=== PATIENT | female | born 1980 | race Hispanic/Latino ===

== ENCOUNTER 2022-03-23 12:03 | Outpatient (CLI) | payer BC | END 2022-03-23 12:04 | disposition home or self-care (01) | LOC: CSHLAB 12:03 | PROVIDERS: ATTEND Internal Medicine Gastroenterology | DX: Z20.822 Contact with and (suspected) exposure to COVID-19 (principal); R10.9 Unspecified abdominal pain; I85.00 Esophageal varices without bleeding | CPT/HCPCS: U0003; U0005 ==

== ENCOUNTER 2022-03-28 05:58 | Day surgery (SDC) | payer BC ==
[2022-03-26 12:10] VITALS: BMI 30.5
[2022-03-28] MEDS ORDERED: Fentanyl 100 MCG/2 ML VIAL ONE (07:05)
[2022-03-28] MEDS ORDERED: PROPOFOL 20 ML ONE (07:05)
[2022-03-28] MEDS ORDERED: Lidocaine 1% PF 5 ML VIAL ONE (07:05)
[2022-03-28] MEDS ORDERED: Lidocaine 1% MPF 2 ML VIAL ONE (07:08)
== END 2022-03-28 09:00 | disposition home or self-care (01) ==
LOC: CSHSDC 05:58
PROVIDERS: ATTEND Internal Medicine Gastroenterology
PROC: 0DB78ZX Excision of Stomach, Pylorus, Via Natural or Artificial Opening Endoscopic, Diagnostic (ICD-10-PCS; principal; 2022-03-28)
DX: K29.50 Unspecified chronic gastritis without bleeding (principal); B96.81 Helicobacter pylori [H. pylori] as the cause of diseases classified elsewhere; I86.4 Gastric varices; K25.9 Gastric ulcer, unspecified as acute or chronic, without hemorrhage or perforation; K29.80 Duodenitis without bleeding; K85.90 Acute pancreatitis without necrosis or infection, unspecified; E78.5 Hyperlipidemia, unspecified; E11.9 Type 2 diabetes mellitus without complications; Z79.4 Long term (current) use of insulin; Z79.84 Long term (current) use of oral hypoglycemic drugs; Z79.899 Other long term (current) drug therapy
CPT/HCPCS: 36416; 88305; J2704; J3010

== ENCOUNTER 2023-05-19 19:52 | Emergency (ER) | payer BC ==
[2023-05-19] MEDS ORDERED: predniSONE 20 MG TAB ONE (20:28)
== END 2023-05-19 20:31 | disposition home or self-care (01) ==
LOC: CSHERS 19:52
DX: G51.0 Bell's palsy (principal); H66.91 Otitis media, unspecified, right ear; E11.9 Type 2 diabetes mellitus without complications; Z79.4 Long term (current) use of insulin; I10 Essential (primary) hypertension
CPT/HCPCS: 99283; J7512

== ENCOUNTER 2023-06-15 07:27 | Inpatient (IN) | payer BC ==
[2023-06-15] MEDS ORDERED: Ondansetron PF 4 MG/2 ML Vial ONE ×2 (08:02→10:16)
[2023-06-15] MEDS ORDERED: Morphine 4 MG/ML VIAL ONE ×2 (08:02→10:16)
[2023-06-15 08:04] LABS: Bilirubin Neg (Negative); Blood, Urine 10 (Negative); Clarity Clear (Clear); Glucose, Urine (Dipstick) >=1000 mg/dL (Negative); Ketone, Urine 150 mg/dL (Negative); Leukocyte Negative (Negative); Nitrite Negative (Negative); Protein, Urine (Dipstick) 15 mg/dl (Neg-Trace); Specific Gravity, Urine 1.015 (1.005-1.030); Urobilinogen Normal mg/dL (Less than 2)
[2023-06-15 08:06] LABS: Pregnancy Test - Urine (BHCG) Negative (Negative); Pregu Control Background? CLEAR/WHITE (CLR/WHITE); Pregu Control Bar Appear? YES (CONTROL BAR); Specific Gravity 1.015 (1.002-1.036)
[2023-06-15 08:18] LABS: Bacteria/HPF Rare-Few HPF (None Seen); CAUTI Indications for Culture Pelvic or flank pain; RBC/HPF 0-3 HPF (0-3); Squamous Epithelial 0-3 HPF (0-3); WBC/HPF 0-3 HPF (0-3); Yeast-Budding Rare HPF (None Seen)
[2023-06-15 08:19] LABS: Urine Culture Reflex No No
[2023-06-15 09:01] LABS: ALT (SGPT) 18 U/L (8-55); AST (SGOT) 21 U/L (5-34); Alkaline Phosphatase 49 U/L (40-110); BUN (Urea Nitrogen) 4 mg/dL (7.0-18.7); Bilirubin, Total 0.5 mg/dL (0.2-1.2); Calc. Creatinine Clearance 0 mL/min (70-130); Calcium 9.3 mg/dL (7.8-10.44); Carbon Dioxide Less than 8 mmol/L (22-29); Chloride 95 mmol/L (98-107); Estimated GFR 85; Globulin 5.1 g/dL (2.4-3.5); Glucose 209 mg/dL (70-105); Lipase 78 U/L (8-78); Potassium 3.8 mmol/L (3.5-5.1); Protein, Total 9.1 g/dL (6.0-8.3); Sodium 133 mmol/L (136-145)
[2023-06-15 09:02] LABS: #Basophils 0.1 10x3/uL (0.0-0.2); #Eosinphils 0.1 10x3/uL (0.0-0.5); #Monocytes 0.5 10x3/uL (0.0-1.1); %Basophils 0.6 % (0.0-2.0); %Eosinophils 0.9 % (0.0-6.0); %Lymphocytes 26.6 % (18.0-47.0); %Monocytes 6.4 % (0.0-10.0); %Neutrophils 65.1 % (40.0-75.0); Hematocrit 43.1 % (34.9-44.5); Hemoglobin 21.3 g/dL (12.0-15.5); Mean Corpuscular HGB CONC 49.4 g/dL (32.0-36.0); Mean Corpuscular Hemoglobin 42.9 pg (27.0-33.0); Mean Corpuscular Volume 86.9 fl (81.6-98.3); Mean Platelet Volume 11.3 fl (7.4-10.4); Platelet Count 279 10x3/uL (150-450); RBC Distribution Width 15.8 % (11.5-14.5); Red Blood Cell (RBC) Count 4.96 10x6/uL (3.90-5.03); White Blood Cell (WBC) Count 7.7 10x3/uL (3.5-10.5)
[2023-06-15 09:49] LABS: Actual Bicarbonate (HCO3v) 15.1 mEq/L (22-28); Base Excess -10.6 mEq/L (-2 - +2); Chloride (VBG) 101 mmol/L (98-106); Hematocrit-VBG 43 % (36.0-47.0); Hemoglobin (Hb) 14.6 g/dL (11.7-15.5); Potassium (VBG) 4.47 mmol/L (3.70-5.30); Puncture Site Other Site; RapidComm Collect By LAB; Sodium 137.7 mmol/L (133-146); pH (venous) 7.276 (7.32-7.43)
[2023-06-15] MEDS ORDERED: HYDROcodone/Acetaminophen 7.5/325 mg Tablet PO PRN (11:03)
[2023-06-15] MEDS ORDERED: Acetaminophen 325 MG TAB PO PRN (11:03)
[2023-06-15] MEDS ORDERED: Sodium Chloride 0.9% 1,000 ML IV SCH (11:15)
[2023-06-15] MEDS ORDERED: Iopamidol 300 61% 100 ML VIAL FS ONE (12:18)
[2023-06-15] MEDS ORDERED: Ketorolac Tromethamine 30 MG/ML VIAL ONE (12:25)
[2023-06-15 13:15] LABS: Lactic Acid 1.4 mmol/L (0.5-2.2)
[2023-06-15 13:20] LABS: BUN (Urea Nitrogen) 4 mg/dL (7.0-18.7); Calc. Creatinine Clearance 0 mL/min (70-130); Calcium 8.7 mg/dL (7.8-10.44); Chloride 100 mmol/L (98-107); Cholesterol 506 mg/dl (< 200 Desired); Estimated GFR 95; Glucose 131 mg/dL (70-105); HDL Cholesterol 11 mg/dL (>60 Neg Risk); Potassium 4.4 mmol/L (3.5-5.1); Sodium 132 mmol/L (136-145)
[2023-06-15 13:31] LABS: Carbon Dioxide Less than 8 mmol/L (22-29)
[2023-06-15 13:42] LABS: Triglycerides Greater than 3800 mg/dL (Less than 150)
[2023-06-15] MEDS ORDERED: HUMULIN R 100 UNITS in Sodium Chloride 0.9% 100 ML IVPB SCH (14:00)
[2023-06-15] MEDS ORDERED: Electrolyte Replacement Protocol 1 EACH IVPB ONE (14:02)
[2023-06-15] MEDS ORDERED: NS 0.9% w/ 20 MEQ KCL 1,000 ML IV PRN ×2 (14:02)
[2023-06-15] MEDS ORDERED: Sodium Chloride 0.9% 1,000 ML IV PRN ×4 (14:02)
[2023-06-15] MEDS ORDERED: Electrolyte Replacement Protocol 1 EACH IVPB PRN (14:12)
[2023-06-15] MEDS: Dextrose 5 %-0.45 % NaCl 1,000 ML IV PRN ×2 (14:42→23:15)
[2023-06-15] MEDS: Morphine 2 MG/ML VIAL SLOW IVP PRN ×3 (14:43→23:11)
[2023-06-15 15:52] LABS: BUN (Urea Nitrogen) 4 mg/dL (7.0-18.7); Calc. Creatinine Clearance 95 mL/min (70-130); Calcium 8.6 mg/dL (7.8-10.44); Chloride 102 mmol/L (98-107); Estimated GFR 84; Glucose 151 mg/dL (70-105); Potassium 4.4 mmol/L (3.5-5.1); Sodium 132 mmol/L (136-145)
[2023-06-15 15:55] LABS: Carbon Dioxide Less than 8 mmol/L (22-29)
[2023-06-15] MEDS: Ondansetron PF 4 MG/2 ML Vial IVP PRN (16:53)
[2023-06-15] MEDS: Ketorolac Tromethamine 30 MG/ML VIAL IVP SCH (16:53)
[2023-06-15 17:19] LABS: Hemoglobin A1c 7.8 % (4.0-6.0)
[2023-06-15 19:11] LABS: BUN (Urea Nitrogen) Less than 4 mg/dL (7.0-18.7); Calc. Creatinine Clearance 101 mL/min (70-130); Calcium 8.5 mg/dL (7.8-10.44); Chloride 102 mmol/L (98-107); Estimated GFR 90; Glucose 152 mg/dL (70-105); Potassium 4.2 mmol/L (3.5-5.1); Sodium 133 mmol/L (136-145)
[2023-06-15 19:29] LABS: Carbon Dioxide Less than 8 mmol/L (22-29)
[2023-06-15] MEDS ORDERED: Promethazine HCl 12.5 MG in Sodium Chloride 0.9% 50 ML IVPB SCH (20:30)
[2023-06-15] MEDS ORDERED: Morphine 2 MG/ML VIAL SLOW IVP SCH (21:30)
[2023-06-15 22:23] LABS: BUN (Urea Nitrogen) Less than 4 mg/dL (7.0-18.7); Calc. Creatinine Clearance 106 mL/min (70-130); Calcium 8.3 mg/dL (7.8-10.44); Chloride 100 mmol/L (98-107); Estimated GFR 95; Glucose 163 mg/dL (70-105); Potassium 4.1 mmol/L (3.5-5.1); Sodium 129 mmol/L (136-145)
[2023-06-15 22:26] LABS: Carbon Dioxide Less than 8 mmol/L (22-29)
[2023-06-16] MEDS: Ketorolac Tromethamine 30 MG/ML VIAL IVP SCH ×5 (00:26→23:15)
[2023-06-16] MEDS ORDERED: D5 1/2 NS w/40 mEq KCL 1,000 ML IV SCH (03:30)
[2023-06-16] MEDS: Morphine 2 MG/ML VIAL SLOW IVP PRN ×3 (04:13→21:38)
[2023-06-16 04:49] LABS: BUN (Urea Nitrogen) Less than 4 mg/dL (7.0-18.7); Calc. Creatinine Clearance 123 mL/min (70-130); Calcium 8.8 mg/dL (7.8-10.44); Chloride 100 mmol/L (98-107); Estimated GFR 112; Glucose 166 mg/dL (70-105); Potassium 3.6 mmol/L (3.5-5.1); Sodium 129 mmol/L (136-145)
[2023-06-16 04:55] LABS: Carbon Dioxide Less than 8 mmol/L (22-29)
[2023-06-16] MEDS ORDERED: Potassium Chloride 20 MEQ in Premix Bag 1 BAG IVPB SCH (06:15)
[2023-06-16 06:35] LABS: Glucose 159 mg/dL (70-105)
[2023-06-16 07:13] LABS: Glucose 164 mg/dL (70-105)
[2023-06-16] MEDS: D5 NS w/ 40 mEq KCl 1,000 ML IV SCH ×3 (07:57→21:09)
[2023-06-16] MEDS ORDERED: Fenofibrate Nanocrystallized 145 MG TAB PO SCH (08:00)
[2023-06-16 08:08] LABS: Glucose 176 mg/dL (70-105)
[2023-06-16] MEDS: Rosuvastatin 20 MG TAB PO SCH (08:48)
[2023-06-16] MEDS: Pantoprazole 40 MG VIAL IVP SCH (08:48)
[2023-06-16 09:30] LABS: Glucose 188 mg/dL (70-105)
[2023-06-16 10:11] LABS: Glucose 187 mg/dL (70-105)
[2023-06-16 12:01] LABS: Glucose 183 mg/dL (70-105)
[2023-06-16 13:10] LABS: Glucose 176 mg/dL (70-105)
[2023-06-16 13:38] LABS: Glucose 178 mg/dL (70-105)
[2023-06-16 14:30] LABS: Glucose 177 mg/dL (70-105)
[2023-06-16 16:00] LABS: Potassium 4.7 mmol/L (3.5-5.1)
[2023-06-16 16:01] LABS: Glucose 169 mg/dL (70-105)
[2023-06-16 16:51] LABS: Glucose 166 mg/dL (70-105)
[2023-06-16 17:32] LABS: Glucose 237 mg/dL (70-105)
[2023-06-16 18:27] LABS: Glucose 388 mg/dL (70-105)
[2023-06-16 20:02] LABS: Glucose 360 mg/dL (70-105)
[2023-06-16 21:02] LABS: Glucose 286 mg/dL (70-105)
[2023-06-16 22:18] LABS: Anion Gap 20 mmol/L (10-20); BUN (Urea Nitrogen) 4 mg/dL (7.0-18.7); Calc. Creatinine Clearance 86 mL/min (70-130); Calcium 8.7 mg/dL (7.8-10.44); Carbon Dioxide 13 mmol/L (22-29); Chloride 107 mmol/L (98-107); Estimated GFR 75; Glucose 208 mg/dL (70-105); Potassium 3.9 mmol/L (3.5-5.1); Sodium 136 mmol/L (136-145)
[2023-06-16 22:31] LABS: Glucose 168 mg/dL (70-105)
[2023-06-16] MEDS: INSULIN REGULAR IN 0.9 % NACL 100 UNITS in Premix Bag 1 BAG IVPB SCH (22:31)
[2023-06-16 23:07] LABS: Glucose 141 mg/dL (70-105)
[2023-06-16] MEDS: Ondansetron PF 4 MG/2 ML Vial IVP PRN (23:15)
[2023-06-16] MEDS: Dextrose 50% Abboject 50 ML SYRINGE SLOW IVP PRN (23:23)
[2023-06-17 00:16] LABS: Glucose 229 mg/dL (70-105)
[2023-06-17 01:15] LABS: Glucose 180 mg/dL (70-105)
[2023-06-17 02:20] LABS: Glucose 166 mg/dL (70-105)
[2023-06-17] MEDS: Morphine 2 MG/ML VIAL SLOW IVP PRN (02:23)
[2023-06-17 03:17] LABS: Glucose 149 mg/dL (70-105)
[2023-06-17] MEDS: Dextrose 50% Abboject 50 ML SYRINGE SLOW IVP PRN (03:21)
[2023-06-17 03:25] LABS: Actual Bicarbonate (HCO3v) 17.5 mEq/L (22-28); Base Excess -6.7 mEq/L (-2 - +2); Calcium, Ionized (venous) 1.13 mmol/L (1.16-1.32); Chloride (VBG) 111 mmol/L (98-106); Hematocrit-VBG 42 % (36.0-47.0); Hemoglobin (Hb) 14.4 g/dL (11.7-15.5); Potassium (VBG) 4.33 mmol/L (3.70-5.30); Puncture Site Other Site; RapidComm Collect By CBL
[2023-06-17] MEDS: D5 NS w/ 40 mEq KCl 1,000 ML IV SCH ×3 (03:31→17:09)
[2023-06-17 03:52] LABS: #Eosinphils 0.1 10x3/uL (0.0-0.5); #Monocytes 0.3 10x3/uL (0.0-1.1); #Neutrophils 4.1 10x3/uL (1.5-8.4); %Basophils 0.5 % (0.0-2.0); %Eosinophils 0.8 % (0.0-6.0); %Monocytes 4.7 % (0.0-10.0); %Neutrophils 68.7 % (40.0-75.0); Hematocrit 41.1 % (34.9-44.5); Hemoglobin 14.7 g/dL (12.0-15.5); Mean Corpuscular HGB CONC 35.8 g/dL (32.0-36.0); Mean Corpuscular Volume 89.5 fl (81.6-98.3); Mean Platelet Volume 11.6 fl (7.4-10.4); Platelet Count 210 10x3/uL (150-450); RBC Distribution Width 17.3 % (11.5-14.5); Red Blood Cell (RBC) Count 4.59 10x6/uL (3.90-5.03); White Blood Cell (WBC) Count 5.9 10x3/uL (3.5-10.5)
[2023-06-17] MEDS: HYDROcodone/Acetaminophen 5/325 mg Tablet PO PRN ×4 (04:01→23:01)
[2023-06-17 04:11] LABS: ALT (SGPT) 16 U/L (8-55); Albumin 3.5 g/dL (3.5-5.0); Alkaline Phosphatase 35 U/L (40-110); Anion Gap 17 mmol/L (10-20); BUN (Urea Nitrogen) Less than 4 mg/dL (7.0-18.7); Bilirubin, Total 0.3 mg/dL (0.2-1.2); CK (CPK) 31 U/L (29-168); Calc. Creatinine Clearance 96 mL/min (70-130); Calcium 8.6 mg/dL (7.8-10.44); Carbon Dioxide 14 mmol/L (22-29); Chloride 111 mmol/L (98-107); Estimated GFR 85; Globulin 3.9 g/dL (2.4-3.5); Glucose 154 mg/dL (70-105); Potassium 4.1 mmol/L (3.5-5.1); Protein, Total 7.4 g/dL (6.0-8.3); Sodium 138 mmol/L (136-145)
[2023-06-17 04:22] LABS: Lipase 2785 U/L (8-78)
[2023-06-17 04:23] LABS: AST (SGOT) 24 U/L (5-34); Bilirubin, Direct 0.1 mg/dL (0.1-0.3); Magnesium 1.8 mg/dL (1.6-2.6)
[2023-06-17 04:30] LABS: Glucose 222 mg/dL (70-105)
[2023-06-17] MEDS ORDERED: Magnesium 2 GM/50 ML(in water) 2 GM in Premix Bag 1 BAG IVPB SCH (04:45)
[2023-06-17] MEDS: Ketorolac Tromethamine 30 MG/ML VIAL IVP SCH ×4 (05:15→23:01)
[2023-06-17 05:18] VITALS: BMI 28.3
[2023-06-17 05:27] LABS: Glucose 188 mg/dL (70-105)
[2023-06-17 06:56] LABS: Glucose 183 mg/dL (70-105)
[2023-06-17 07:16] LABS: Glucose 177 mg/dL (70-105)
[2023-06-17 08:20] LABS: Glucose 169 mg/dL (70-105)
[2023-06-17] MEDS: Fenofibrate Nanocrystallized 145 MG TAB PO SCH (08:45)
[2023-06-17] MEDS: Pantoprazole 40 MG VIAL IVP SCH (08:46)
[2023-06-17] MEDS: Rosuvastatin 20 MG TAB PO SCH (08:46)
[2023-06-17 09:25] LABS: Glucose 322 mg/dL (70-105)
[2023-06-17 10:15] LABS: Glucose 329 mg/dL (70-105)
[2023-06-17 11:24] LABS: Glucose 265 mg/dL (70-105)
[2023-06-17 12:49] LABS: Glucose 362 mg/dL (70-105)
[2023-06-17 12:50] LABS: Hemoglobin A1c 8.8 % (4.0-6.0)
[2023-06-17] MEDS: INSULIN REGULAR IN 0.9 % NACL 100 UNITS in Premix Bag 1 BAG IVPB SCH (13:24)
[2023-06-17 13:39] LABS: Glucose 437 mg/dL (70-105)
[2023-06-17 14:40] LABS: Glucose 373 mg/dL (70-105)
[2023-06-17 15:13] LABS: Anion Gap 13 mmol/L (10-20); BUN (Urea Nitrogen) Less than 4 mg/dL (7.0-18.7); Calc. Creatinine Clearance 105 mL/min (70-130); Calcium 8.4 mg/dL (7.8-10.44); Carbon Dioxide 14 mmol/L (22-29); Chloride 112 mmol/L (98-107); Estimated GFR 97; Glucose 284 mg/dL (70-105); Sodium 135 mmol/L (136-145)
[2023-06-17 15:15] LABS: Glucose 281 mg/dL (70-105)
[2023-06-17 15:21] LABS: Triglycerides 1532 mg/dL (Less than 150)
[2023-06-17 21:49] LABS: Anion Gap 14 mmol/L (10-20); BUN (Urea Nitrogen) Less than 4 mg/dL (7.0-18.7); Calc. Creatinine Clearance 109 mL/min (70-130); Calcium 8.6 mg/dL (7.8-10.44); Carbon Dioxide 18 mmol/L (22-29); Chloride 109 mmol/L (98-107); Estimated GFR 102; Glucose 174 mg/dL (70-105); Potassium 3.9 mmol/L (3.5-5.1); Sodium 137 mmol/L (136-145)
[2023-06-18] MEDS: D5 NS w/ 40 mEq KCl 1,000 ML IV SCH ×3 (00:10→14:02)
[2023-06-18 03:37] LABS: #Eosinphils 0.2 10x3/uL (0.0-0.5); #Monocytes 0.3 10x3/uL (0.0-1.1); #Neutrophils 2.6 10x3/uL (1.5-8.4); %Basophils 0.6 % (0.0-2.0); %Eosinophils 3.8 % (0.0-6.0); %Monocytes 6.8 % (0.0-10.0); %Neutrophils 54.4 % (40.0-75.0); Hematocrit 35.3 % (34.9-44.5); Hemoglobin 11.6 g/dL (12.0-15.5); Mean Corpuscular HGB CONC 32.9 g/dL (32.0-36.0); Mean Corpuscular Hemoglobin 29.6 pg (27.0-33.0); Mean Corpuscular Volume 90.1 fl (81.6-98.3); Mean Platelet Volume 11.6 fl (7.4-10.4); Platelet Count 197 10x3/uL (150-450); RBC Distribution Width 17.4 % (11.5-14.5); Red Blood Cell (RBC) Count 3.92 10x6/uL (3.90-5.03); White Blood Cell (WBC) Count 4.7 10x3/uL (3.5-10.5)
[2023-06-18 03:50] LABS: ALT (SGPT) 11 U/L (8-55); AST (SGOT) 18 U/L (5-34); Alkaline Phosphatase 32 U/L (40-110); Anion Gap 14 mmol/L (10-20); BUN (Urea Nitrogen) Less than 4 mg/dL (7.0-18.7); Bilirubin, Total 0.2 mg/dL (0.2-1.2); Calc. Creatinine Clearance 126 mL/min (70-130); Calcium 8.3 mg/dL (7.8-10.44); Carbon Dioxide 17 mmol/L (22-29); Chloride 110 mmol/L (98-107); Estimated GFR 114; Globulin 3.1 g/dL (2.4-3.5); Glucose 177 mg/dL (70-105); Magnesium 1.6 mg/dL (1.6-2.6); Potassium 3.7 mmol/L (3.5-5.1); Protein, Total 6.1 g/dL (6.0-8.3); Sodium 137 mmol/L (136-145)
[2023-06-18] MEDS ORDERED: Magnesium 2 GM/50 ML(in water) 2 GM in Premix Bag 1 BAG IVPB SCH (04:00)
[2023-06-18] MEDS: Ketorolac Tromethamine 30 MG/ML VIAL IVP SCH ×3 (05:05→21:44)
[2023-06-18] MEDS: Fenofibrate Nanocrystallized 145 MG TAB PO SCH (08:18)
[2023-06-18] MEDS: Pantoprazole 40 MG VIAL IVP SCH (08:18)
[2023-06-18] MEDS: Rosuvastatin 20 MG TAB PO SCH (08:18)
[2023-06-18] MEDS: INSULIN REGULAR IN 0.9 % NACL 100 UNITS in Premix Bag 1 BAG IVPB SCH (08:52)
[2023-06-18 11:44] LABS: Lipase 266 U/L (8-78); Triglycerides 1046 mg/dL (Less than 150)
[2023-06-18 20:17] LABS: Anion Gap 14 mmol/L (10-20); BUN (Urea Nitrogen) 4 mg/dL (7.0-18.7); Calc. Creatinine Clearance 134 mL/min (70-130); Calcium 8.8 mg/dL (7.8-10.44); Carbon Dioxide 20 mmol/L (22-29); Chloride 103 mmol/L (98-107); Estimated GFR 115; Glucose 172 mg/dL (70-105); Potassium 4.4 mmol/L (3.5-5.1); Sodium 133 mmol/L (136-145)
[2023-06-19] MEDS: Ketorolac Tromethamine 30 MG/ML VIAL IVP SCH ×2 (02:18→06:10)
[2023-06-19 03:30] LABS: #Eosinphils 0.1 10x3/uL (0.0-0.5); #Monocytes 0.3 10x3/uL (0.0-1.1); #Neutrophils 1.5 10x3/uL (1.5-8.4); %Basophils 0.8 % (0.0-2.0); %Eosinophils 2.9 % (0.0-6.0); %Lymphocytes 47.9 % (18.0-47.0); %Monocytes 8.3 % (0.0-10.0); %Neutrophils 39.8 % (40.0-75.0); Hematocrit 36.4 % (34.9-44.5); Hemoglobin 12.1 g/dL (12.0-15.5); Mean Corpuscular HGB CONC 33.2 g/dL (32.0-36.0); Mean Corpuscular Hemoglobin 29.7 pg (27.0-33.0); Mean Corpuscular Volume 89.4 fl (81.6-98.3); Mean Platelet Volume 11.8 fl (7.4-10.4); Platelet Count 203 10x3/uL (150-450); RBC Distribution Width 16.9 % (11.5-14.5); Red Blood Cell (RBC) Count 4.07 10x6/uL (3.90-5.03); White Blood Cell (WBC) Count 3.7 10x3/uL (3.5-10.5)
[2023-06-19 03:46] LABS: ALT (SGPT) 16 U/L (8-55); AST (SGOT) 24 U/L (5-34); Albumin 3.3 g/dL (3.5-5.0); Alkaline Phosphatase 41 U/L (40-110); Anion Gap 15 mmol/L (10-20); BUN (Urea Nitrogen) 6 mg/dL (7.0-18.7); Bilirubin, Total 0.3 mg/dL (0.2-1.2); Calc. Creatinine Clearance 154 mL/min (70-130); Calcium 8.9 mg/dL (7.8-10.44); Carbon Dioxide 21 mmol/L (22-29); Chloride 103 mmol/L (98-107); Estimated GFR 119; Globulin 3.5 g/dL (2.4-3.5); Glucose 160 mg/dL (70-105); Magnesium 1.6 mg/dL (1.6-2.6); Potassium 3.9 mmol/L (3.5-5.1); Protein, Total 6.8 g/dL (6.0-8.3); Sodium 135 mmol/L (136-145)
[2023-06-19] MEDS ORDERED: Magnesium 2 GM/50 ML(in water) 2 GM in Premix Bag 1 BAG IVPB SCH (04:30)
[2023-06-19 07:39] VITALS: BP 139/94; TEMP 98
[2023-06-19] MEDS: Rosuvastatin 20 MG TAB PO SCH (08:00)
[2023-06-19] MEDS: Pantoprazole 40 MG VIAL IVP SCH (08:00)
[2023-06-19] MEDS: Fenofibrate Nanocrystallized 145 MG TAB PO SCH (08:00)
== END 2023-06-19 10:27 | disposition home or self-care (01) | DRG 438 ==
LOC: CSHERS 07:27 → CSHTELE 12:24 → CSHICU 14:51
PROVIDERS: ADMIT Internal Medicine; ATTEND Family Medicine
PROC: 4A133R1 Monitoring of Arterial Saturation, Peripheral, Percutaneous Approach (ICD-10-PCS; principal; 2023-06-15)
DX: K86.1 Other chronic pancreatitis (principal); E11.10 Type 2 diabetes mellitus with ketoacidosis without coma; E87.1 Hypo-osmolality and hyponatremia; I82.890 Acute embolism and thrombosis of other specified veins; E66.9 Obesity, unspecified; I10 Essential (primary) hypertension; I86.4 Gastric varices; E78.1 Pure hyperglyceridemia; Z68.28 Body mass index [BMI] 28.0-28.9, adult; Z79.4 Long term (current) use of insulin; Z90.49 Acquired absence of other specified parts of digestive tract; Z98.51 Tubal ligation status; Z79.899 Other long term (current) drug therapy
CPT/HCPCS: 36415; 36416; 74177; 76705; 80048; 80053; 80061; 80076; 81001; 81025; 82010; 82550; 82805; 83036; 83605; 83690; 83735; 84443; 84478; 85025; 94760; 94762; C9113; J1650; J1815; J1885; J2270; J2272; J2405; J2550; J3475; J3480; J7042; J7050; J7999; Q9967

== ENCOUNTER 2023-07-19 11:02 | Outpatient (CLI) | payer BC | END 2023-07-19 11:03 | disposition home or self-care (01) | LOC: CSHMAMMO 11:02 | PROVIDERS: ATTEND Family Medicine | DX: Z12.31 Encounter for screening mammogram for malignant neoplasm of breast (principal) | CPT/HCPCS: 77063; 77067 ==

== ENCOUNTER 2023-11-29 08:31 | Inpatient (IN) | payer BC ==
[2023-11-29] MEDS ORDERED: Morphine 4 MG/ML VIAL ONE ×2 (09:26→12:07)
[2023-11-29] MEDS ORDERED: Ondansetron PF 4 MG/2 ML Vial ONE ×2 (09:27→12:07)
[2023-11-29 09:33] LABS: #Basophils 0.1 10x3/uL (0.0-0.2); #Eosinphils 0.1 10x3/uL (0.0-0.5); #Monocytes 0.4 10x3/uL (0.0-1.1); #Neutrophils 4.3 10x3/uL (1.5-8.4); %Basophils 1.1 % (0.0-2.0); %Eosinophils 1.7 % (0.0-6.0); %Lymphocytes 26.4 % (18.0-47.0); %Monocytes 5.6 % (0.0-10.0); %Neutrophils 64.9 % (40.0-75.0); Hemoglobin 13.7 g/dL (12.0-15.5); Mean Corpuscular HGB CONC 35.1 g/dL (32.0-36.0); Mean Corpuscular Hemoglobin 30.8 pg (27.0-33.0); Mean Corpuscular Volume 87.6 fl (81.6-98.3); Mean Platelet Volume 11.7 fl (7.4-10.4); Platelet Count 287 10x3/uL (150-450); RBC Distribution Width 16.7 % (11.5-14.5); Red Blood Cell (RBC) Count 4.45 10x6/uL (3.90-5.03); White Blood Cell (WBC) Count 6.6 10x3/uL (3.5-10.5)
[2023-11-29 09:47] LABS: Bilirubin Neg (Negative); Blood, Urine 250 (Negative); Glucose, Urine (Dipstick) 250 mg/dL (Negative); Ketone, Urine 50 mg/dL (Negative); Leukocyte 25 (Negative); Nitrite Positive (Negative); Protein, Urine (Dipstick) 100 mg/dl (Neg-Trace); Specific Gravity, Urine 1.025 (1.005-1.030)
[2023-11-29 09:52] LABS: Clarity Hazy (Clear)
[2023-11-29 10:01] LABS: CAUTI Indications for Culture Pelvic or flank pain
[2023-11-29 10:02] LABS: Bacteria/HPF 4+ HPF (None Seen)
[2023-11-29 10:04] LABS: Urine Culture Reflex No No
[2023-11-29 10:12] LABS: ALT (SGPT) 13 U/L (8-55); AST (SGOT) 22 U/L (5-34); Albumin 3.8 g/dL (3.5-5.0); Alkaline Phosphatase 46 U/L (40-110); Anion Gap 22 mmol/L (10-20); BUN (Urea Nitrogen) 7 mg/dL (7.0-18.7); Bilirubin, Total 0.6 mg/dL (0.2-1.2); Calc. Creatinine Clearance 0 mL/min (70-130); Calcium 8.7 mg/dL (7.8-10.44); Carbon Dioxide 15 mmol/L (22-29); Chloride 100 mmol/L (98-107); Estimated GFR 117; Globulin 3.9 g/dL (2.4-3.5); Glucose 235 mg/dL (70-105); Lipase 200 U/L (8-78); Potassium 3.8 mmol/L (3.5-5.1); Protein, Total 7.7 g/dL (6.0-8.3); Sodium 133 mmol/L (136-145)
[2023-11-29] MEDS ORDERED: Iopamidol 300 61% 100 ML VIAL FS ONE (10:40)
[2023-11-29 10:47] LABS: BHCG - Serum Negative (NEGATIVE); Pregs Control Background? CLEAR/WHITE (CLR/WHITE); Pregs Control Bar Appear? YES (CONTROL BAR)
[2023-11-29] MEDS ORDERED: cefTRIAXone (ROCEPHIN) 2 GM VIAL ONE (11:32)
[2023-11-29 11:46] LABS: Actual Bicarbonate (HCO3v) 20.6 mEq/L (22-28); Analyzer IN Cardio CS ER; Base Excess -2.8 mEq/L (-2 - +2); Chloride (VBG) 103 mmol/L (98-106); Hematocrit-VBG 39 % (36.0-47.0); Hemoglobin (Hb) 13.4 g/dL (11.7-15.5); Potassium (VBG) 4.54 mmol/L (3.70-5.30); Puncture Site Other Site; RapidComm Collect By CBN; Sodium 137 mmol/L (133-146); pH (venous) 7.428 (7.32-7.43)
[2023-11-29] MEDS ORDERED: Acetaminophen 325 MG TAB PO PRN (11:48)
[2023-11-29] MEDS ORDERED: Senokot S 8.6-50 MG TAB PO PRN (11:48)
[2023-11-29] MEDS ORDERED: Promethazine HCl 25 MG/ML VIAL IM PRN (11:48)
[2023-11-29] MEDS ORDERED: Ondansetron ODT 4 MG TAB PO PRN (11:48)
[2023-11-29 12:15] LABS: CRP (Inflammatory) 5.52 mg/dL (= or < 0.5); Magnesium 1.7 mg/dL (1.6-2.6)
[2023-11-29 12:18] LABS: Troponin I Less than 0.010 ng/mL (< 0.028)
[2023-11-29 13:01] LABS: SARS-CoV-2 NAA Rapid Test Not Detected (NotDetected)
[2023-11-29 13:19] VITALS: BMI 29.6
[2023-11-29] MEDS: cefTRIAXone\\ROCEPHIN 2 GM in Sodium Chloride 0.9% 100 ML IVPB SCH (13:32)
[2023-11-29] MEDS: Sodium Chloride 0.9% 1,000 ML IV SCH (13:33)
[2023-11-29] MEDS: Morphine 4 MG/ML VIAL SLOW IVP PRN (17:26)
[2023-11-29] MEDS: Morphine 2 MG/ML VIAL SLOW IVP PRN (21:39)
[2023-11-29] MEDS: Famotidine/PF 20 mg/2ml Vial SLOW IVP SCH (21:40)
[2023-11-29] MEDS: Famotidine 20 MG TAB PO SCH (22:33)
[2023-11-29] MEDS: Ondansetron PF 4 MG/2 ML Vial IVP PRN (23:03)
[2023-11-30] MEDS ORDERED: Dextrose 50% Abboject 50 ML SYRINGE SLOW IVP PRN (01:11)
[2023-11-30] MEDS ORDERED: Dextrose 5% in Water 1,000 ML IV PRN (01:11)
[2023-11-30] MEDS ORDERED: Glucagon 1 MG/ML KIT IM PRN (01:11)
[2023-11-30] MEDS: HumaLOG 300 UNITS/3 ML VIAL SC PRN (01:54)
[2023-11-30 04:17] LABS: ALT (SGPT) 11 U/L (8-55); AST (SGOT) 25 U/L (5-34); Albumin 3.1 g/dL (3.5-5.0); Alkaline Phosphatase 36 U/L (40-110); Anion Gap 15 mmol/L (10-20); BUN (Urea Nitrogen) 6 mg/dL (7.0-18.7); Bilirubin, Total 0.2 mg/dL (0.2-1.2); Calc. Creatinine Clearance 165 mL/min (70-130); Calcium 7.5 mg/dL (7.8-10.44); Carbon Dioxide 19 mmol/L (22-29); Cardiac Risk 19.9 (Less than 4.5); Chloride 108 mmol/L (98-107); Cholesterol 358 mg/dl (< 200 Desired); Estimated GFR 120; Globulin 2.9 g/dL (2.4-3.5); Glucose 121 mg/dL (70-105); HDL Cholesterol 18 mg/dL (>60 Neg Risk); Lipase 23 U/L (8-78); Potassium 3.1 mmol/L (3.5-5.1); Sodium 139 mmol/L (136-145)
[2023-11-30 04:23] LABS: Triglycerides 1130 mg/dL (Less than 150)
[2023-11-30] MEDS: Lactated Ringer's 1,000 ML IV SCH (06:10)
[2023-11-30] MEDS: Potassium Chloride 20 MEQ TAB PO SCH (06:10)
[2023-11-30] MEDS ORDERED: Gemfibrozil 600 MG TAB PO SCH (07:30)
[2023-11-30] MEDS: Enoxaparin 40 MG (0.4 mL) SYRINGE SC SCH (10:05)
[2023-11-30] MEDS: Fish Oil 1,000 MG CAP PO SCH (10:06)
[2023-11-30] MEDS: Lantus 1000 UNITS/10 ML VIAL SC SCH ×2 (10:06→16:17)
[2023-11-30] MEDS: Rosuvastatin 20 MG TAB PO SCH (10:06)
[2023-11-30] MEDS: Fenofibrate Nanocrystallized 145 MG TAB PO SCH (10:07)
[2023-12-01 07:53] VITALS: BP 107/66; TEMP 97.8
[2023-12-01 08:32] LABS: ALT (SGPT) 16 U/L (8-55); AST (SGOT) 31 U/L (5-34); Albumin 3.3 g/dL (3.5-5.0); Alkaline Phosphatase 40 U/L (40-110); Anion Gap 12 mmol/L (10-20); BUN (Urea Nitrogen) 6 mg/dL (7.0-18.7); Bilirubin, Total 0.4 mg/dL (0.2-1.2); Calc. Creatinine Clearance 139 mL/min (70-130); Calcium 8.4 mg/dL (7.8-10.44); Carbon Dioxide 23 mmol/L (22-29); Chloride 103 mmol/L (98-107); Estimated GFR 115; Globulin 3.2 g/dL (2.4-3.5); Glucose 254 mg/dL (70-105); Potassium 3.3 mmol/L (3.5-5.1); Protein, Total 6.5 g/dL (6.0-8.3); Sodium 135 mmol/L (136-145)
[2023-12-01] MEDS ORDERED: Lantus 1000 UNITS/10 ML VIAL SC SCH (09:00)
[2023-12-01] MEDS: Lantus 1000 UNITS/10 ML VIAL SC SCH (09:23)
[2023-12-01] MEDS: Potassium Chloride 20 MEQ TAB PO SCH (09:31)
== END 2023-12-01 11:25 | disposition home or self-care (01) | DRG 439 ==
LOC: CSHERS 08:31 → CSHTELE 11:31 → OBSVTOIN 11-30 13:47
PROVIDERS: ADMIT Internal Medicine; ATTEND Nurse Practitioner Acute Care
DX: K85.90 Acute pancreatitis without necrosis or infection, unspecified (principal); N39.0 Urinary tract infection, site not specified; K86.1 Other chronic pancreatitis; I10 Essential (primary) hypertension; E78.1 Pure hyperglyceridemia; Z79.4 Long term (current) use of insulin; Z79.899 Other long term (current) drug therapy; Z90.49 Acquired absence of other specified parts of digestive tract; Z98.51 Tubal ligation status; Z90.89 Acquired absence of other organs; Z98.890 Other specified postprocedural states; E11.65 Type 2 diabetes mellitus with hyperglycemia; Z11.52 Encounter for screening for COVID-19
CPT/HCPCS: 36415; 36416; 74177; 80053; 80061; 81001; 82010; 82805; 83605; 83615; 83690; 83735; 84478; 84484; 84703; 85025; 86140; 87040; 87077; 87086; 87186; 96361; 96365; 96375; 96376; G0378; J0696; J1815; J2270; J2272; J2405; J3490; J7050; J7120; Q9967; S0028

== ENCOUNTER 2025-06-29 09:59 | Inpatient (IN) | payer BC ==
[2025-06-29 10:36] LABS: Glucose, Urine (Dipstick) >=1000 mg/dL (Negative); Leukocyte Negative (Negative); Protein, Urine (Dipstick) 100 mg/dl (Neg-Trace); Specific Gravity, Urine 1.020 (1.005-1.030)
[2025-06-29 10:52] LABS: #Basophils 0.04 10x3/uL (0.0-0.2); #Eosinophils 0.04 10x3/uL (0.0-0.5); #Monocytes 0.45 10x3/uL (0.0-1.1); #Neutrophils 2.77 10x3/uL (1.5-8.4); %Basophils 0.7 % (0.0-2.0); %Eosinophils 0.7 % (0.0-6.0); %Lymphocytes 37.8 % (18.0-47.0); %Monocytes 8.4 % (0.0-10.0); %Neutrophils 52.0 % (40.0-75.0); Hematocrit 39.5 % (34.9-44.5); Hemoglobin 13.7 g/dL (12.0-15.5); Mean Corpuscular Hemoglobin 31.6 pg (27.0-33.0); Mean Corpuscular Volume 91.2 fL (81.6-98.3); Platelet Count 279 10x3/uL (150-450); Red Blood Cell (RBC) Count 4.33 10x6/uL (3.90-5.03); White Blood Cell (WBC) Count 5.34 10x3/uL (3.5-10.5)
[2025-06-29 10:59] LABS: CAUTI Indications for Culture Pelvic or flank pain; RBC/HPF 0-3 HPF (0-3); WBC/HPF 0-3 HPF (0-3)
[2025-06-29 11:00] LABS: Bacteria/HPF None Seen HPF (None Seen); Urine Culture Reflex No No
[2025-06-29 11:08] LABS: ALT (SGPT) 19 U/L (Less than 34); AST (SGOT) 37 U/L (11-34); Albumin 4.0 g/dL (3.1-4.5); Alkaline Phosphatase 50 U/L (40-110); Anion Gap 28 mmol/L (10-20); BUN (Urea Nitrogen) 16 mg/dL (7.0-18.7); Bilirubin, Total 0.3 mg/dL (0.3-1.2); Calc. Creatinine Clearance 0 mL/min (70-130); Calcium 9.7 mg/dL (7.8-10.44); Chloride 100 mmol/L (98-107); Globulin 4.0 g/dL (2.4-3.5); Glucose 225 mg/dL (70-105); Lipase 23 U/L (8-78); Potassium 3.8 mmol/L (3.5-5.1); Sodium 133 mmol/L (136-145)
[2025-06-29 11:10] LABS: BHCG - Serum Negative (NEGATIVE); Pregs Control Background? CLEAR/WHITE (CLR/WHITE); Pregs Control Bar Appear? YES (CONTROL BAR)
[2025-06-29] MEDS ORDERED: Ondansetron PF 4 MG/2 ML Vial ONE (11:11)
[2025-06-29] MEDS ORDERED: Ketorolac Tromethamine 30 MG (1 mL) VIAL ONE (11:11)
[2025-06-29 11:14] LABS: Carbon Dioxide 9 mmol/L (22-29)
[2025-06-29 11:42] LABS: Actual Bicarbonate (HCO3v) 18.9 mEq/L (22-28); Analyzer IN Cardio CS ER; Base Excess -4.5 mEq/L (-2 - +2); Calcium, Ionized (venous) 1.19 mmol/L (1.16-1.32); Chloride (VBG) 104 mmol/L (98-106); Critical Notified Whom: nwaas; Hematocrit-VBG 41 % (36.0-47.0); Hemoglobin (Hb) 13.8 g/dL (11.7-15.5); Potassium (VBG) 3.84 mmol/L (3.70-5.30); Puncture Site Other Site; RapidComm Collect By LAB; Sodium 138 mmol/L (133-146)
[2025-06-29] MEDS ORDERED: NS 0.9% w/ 20 MEQ KCL 1,000 ML IV PRN ×2 (12:34)
[2025-06-29] MEDS ORDERED: Dextrose 50% Abboject 50 ML SYRINGE SLOW IVP PRN (12:34)
[2025-06-29] MEDS ORDERED: Electrolyte Replacement Protocol 1 EACH IVPB SCH (12:34)
[2025-06-29] MEDS ORDERED: Bisacodyl 10 MG SUPP PR PRN (12:39)
[2025-06-29] MEDS ORDERED: Senokot S 8.6-50 MG TAB PO PRN (12:39)
[2025-06-29] MEDS ORDERED: Melatonin 3 MG TAB PO PRN (12:39)
[2025-06-29] MEDS ORDERED: Ondansetron PF 4 MG/2 ML Vial IVP PRN (12:39)
[2025-06-29] MEDS ORDERED: Calcium Carbonate 500 MG ChewTAB PO PRN (12:39)
[2025-06-29] MEDS ORDERED: INSULIN REGULAR IN 0.9 % NACL 100 ML IVPB SCH (12:45)
[2025-06-29] MEDS ORDERED: D5 1/2 NS w/20 mEq KCL 1,000 ML ONE (12:54)
[2025-06-29] MEDS ORDERED: INSULIN REGULAR IN 0.9 % NACL 100 ML ONE (13:10)
[2025-06-29 13:25] LABS: Anion Gap 13 mmol/L (10-20); BUN (Urea Nitrogen) 16 mg/dL (7.0-18.7); Calc. Creatinine Clearance 0 mL/min (70-130); Calcium 8.6 mg/dL (7.8-10.44); Carbon Dioxide 21 mmol/L (22-29); Chloride 105 mmol/L (98-107); Glucose 109 mg/dL (70-105); Magnesium 1.5 mg/dL (1.6-2.6); Potassium 3.9 mmol/L (3.5-5.1); Sodium 135 mmol/L (136-145)
[2025-06-29 15:43] LABS: Anion Gap 26 mmol/L (10-20); BUN (Urea Nitrogen) 12 mg/dL (7.0-18.7); Calc. Creatinine Clearance 0 mL/min (70-130); Calcium 8.7 mg/dL (7.8-10.44); Chloride 106 mmol/L (98-107); Glucose 119 mg/dL (70-105); Potassium 3.8 mmol/L (3.5-5.1); Sodium 136 mmol/L (136-145)
[2025-06-29 15:45] LABS: Carbon Dioxide 8 mmol/L (22-29)
[2025-06-29 17:33] LABS: Actual Bicarbonate (HCO3a) 18.1 mEq/L (22-28); Analyzer IN Cardio CS ICU; Base Excess (BEa) -5.8 mEq/L (-2.0 to +3.0); CO2 Tension 31.0 mmHg (35.0-45.0); Calcium, Ionized (arterial) 1.19 mmol/L (1.12-1.30); Hematocrit-ABG 40 % (36.0-47.0); Hemoglobin (Hb) 13.7 g/dL (12.0-16.0); O2 Tension (PaO2), arterial 105.9 mmHg (80.0-100.0); Potassium - ABG Lab 3.68 mmol/L (3.70-5.30); Puncture Site Left Radial artery; pH, Arterial 7.383 (7.35-7.45)
[2025-06-29 17:38] LABS: ALV-art Gradient 5.080 mmHg (0-20)
[2025-06-29 17:51] LABS: Anion Gap 24 mmol/L (10-20); BUN (Urea Nitrogen) 11 mg/dL (7.0-18.7); Calc. Creatinine Clearance 208 mL/min (70-130); Calcium 8.7 mg/dL (7.8-10.44); Carbon Dioxide 10 mmol/L (22-29); Chloride 105 mmol/L (98-107); Glucose 101 mg/dL (70-105); Potassium 3.6 mmol/L (3.5-5.1); Sodium 135 mmol/L (136-145)
[2025-06-29] MEDS: cefTRIAXone\\ROCEPHIN 1 GM in Sodium Chloride 0.9% 100 ML IVPB SCH (18:46)
[2025-06-29] MEDS: Magnesium 2 GM/50 ML(in water) 2 GM in Premix 1 BAG IVPB SCH ×2 (18:46→18:53)
[2025-06-29] MEDS: Enoxaparin 40 MG (0.4 mL) SYRINGE SC SCH ×2 (20:18→20:25)
[2025-06-29 21:28] LABS: Anion Gap 23 mmol/L (10-20); BUN (Urea Nitrogen) 12 mg/dL (7.0-18.7); Calc. Creatinine Clearance 134 mL/min (70-130); Calcium 8.5 mg/dL (7.8-10.44); Carbon Dioxide 14 mmol/L (22-29); Chloride 105 mmol/L (98-107); Glucose 140 mg/dL (70-105); Potassium 3.7 mmol/L (3.5-5.1); Sodium 138 mmol/L (136-145)
[2025-06-30 05:52] LABS: Anion Gap 13 mmol/L (10-20); BUN (Urea Nitrogen) 12 mg/dL (7.0-18.7); Calc. Creatinine Clearance 190 mL/min (70-130); Calcium 8.2 mg/dL (7.8-10.44); Carbon Dioxide 19 mmol/L (22-29); Chloride 106 mmol/L (98-107); Glucose 110 mg/dL (70-105); Magnesium 1.8 mg/dL (1.6-2.6); Potassium 4.1 mmol/L (3.5-5.1); Sodium 134 mmol/L (136-145)
[2025-06-30] MEDS: Acetaminophen 325 MG TAB PO PRN (06:29)
[2025-06-30] MEDS: D5 1/2 NS w/20 mEq KCL 1,000 ML IV PRN (06:33)
[2025-06-30 07:56] LABS: Glucose 125 mg/dL (70-105)
[2025-06-30 08:53] LABS: Glucose 196 mg/dL (70-105)
[2025-06-30] MEDS: Enoxaparin 40 MG (0.4 mL) SYRINGE SC SCH (09:12)
[2025-06-30] MEDS: Magnesium 2 GM/50 ML(in water) 2 GM in Premix 1 BAG IVPB SCH (09:13)
[2025-06-30] MEDS: Metoprolol Succinate XL 25 MG ER.TAB PO SCH (09:13)
[2025-06-30] MEDS: Rosuvastatin 20 MG TAB PO SCH (09:13)
[2025-06-30] MEDS: Losartan 50 MG TAB PO SCH (09:13)
[2025-06-30 09:43] LABS: Glucose 278 mg/dL (70-105)
[2025-06-30 10:33] LABS: Glucose 254 mg/dL (70-105)
[2025-06-30 12:00] LABS: Glucose 226 mg/dL (70-105)
[2025-06-30 12:38] LABS: Glucose 234 mg/dL (70-105)
[2025-06-30 13:37] LABS: Glucose 261 mg/dL (70-105)
[2025-06-30] MEDS: INSULIN REGULAR IN 0.9 % NACL 100 ML IVPB SCH (14:04)
[2025-06-30] MEDS: D5 1/2 NS w/20 mEq KCL 1,000 ML IV SCH (14:04)
[2025-06-30 14:36] LABS: Glucose 247 mg/dL (70-105)
[2025-06-30 15:45] LABS: Glucose 191 mg/dL (70-105)
[2025-06-30 17:13] LABS: Glucose 142 mg/dL (70-105)
[2025-06-30 17:53] LABS: Glucose 112 mg/dL (70-105)
[2025-06-30 21:50] LABS: Glucose 119 mg/dL (70-105)
[2025-07-01 01:36] LABS: Glucose 99 mg/dL (70-105)
[2025-07-01 05:40] LABS: #Basophils 0.03 10x3/uL (0.0-0.2); #Eosinophils 0.09 10x3/uL (0.0-0.5); #Monocytes 0.54 10x3/uL (0.0-1.1); #Neutrophils 2.64 10x3/uL (1.5-8.4); %Basophils 0.5 % (0.0-2.0); %Eosinophils 1.6 % (0.0-6.0); %Lymphocytes 42.7 % (18.0-47.0); %Monocytes 9.3 % (0.0-10.0); %Neutrophils 45.6 % (40.0-75.0); Hematocrit 37.7 % (34.9-44.5); Hemoglobin 12.7 g/dL (12.0-15.5); Mean Corpuscular Hemoglobin 31.8 pg (27.0-33.0); Mean Corpuscular Volume 94.3 fL (81.6-98.3); Platelet Count 236 10x3/uL (150-450); Red Blood Cell (RBC) Count 4.00 10x6/uL (3.90-5.03); White Blood Cell (WBC) Count 5.79 10x3/uL (3.5-10.5)
[2025-07-01 05:54] LABS: ALT (SGPT) 23 U/L (Less than 34); AST (SGOT) 35 U/L (11-34); Albumin 3.4 g/dL (3.1-4.5); Alkaline Phosphatase 37 U/L (40-110); Anion Gap 13 mmol/L (10-20); BUN (Urea Nitrogen) 9 mg/dL (7.0-18.7); Bilirubin, Total 0.2 mg/dL (0.3-1.2); Calc. Creatinine Clearance 213 mL/min (70-130); Calcium 8.5 mg/dL (7.8-10.44); Carbon Dioxide 20 mmol/L (22-29); Cardiac Risk 20.1 (Less than 4.5); Chloride 106 mmol/L (98-107); Cholesterol 362 mg/dl (< 200 Desired); Globulin 3.5 g/dL (2.4-3.5); Glucose 79 mg/dL (70-105); HDL Cholesterol 18 mg/dL (>60 Neg Risk); Magnesium 1.8 mg/dL (1.6-2.6); Potassium 4.2 mmol/L (3.5-5.1); Sodium 135 mmol/L (136-145)
[2025-07-01 06:46] LABS: Triglycerides 2943 mg/dL (Less than 150)
[2025-07-01] MEDS: Magnesium 2 GM/50 ML(in water) 2 GM in Premix 1 BAG IVPB SCH (08:05)
[2025-07-01 09:30] LABS: Glucose 141 mg/dL (70-105)
[2025-07-01] MEDS: INSULIN REGULAR IN 0.9 % NACL 100 ML IVPB SCH (12:35)
[2025-07-01] MEDS ORDERED: INSULIN REGULAR IN 0.9 % NACL 100 ML IVPB SCH (13:00)
[2025-07-01] MEDS ORDERED: D5 1/2 NS w/10 mEq KCl 1,000 ML/1,000 ML BAG IV SCH (13:00)
[2025-07-01 14:02] LABS: Glucose 180 mg/dL (70-105)
[2025-07-01 17:46] LABS: Glucose 145 mg/dL (70-105)
[2025-07-01] MEDS ORDERED: Electrolyte Replacement Protocol 1 EACH FS PRN (21:55)
[2025-07-01 23:00] LABS: Anion Gap 17 mmol/L (10-20); BUN (Urea Nitrogen) 8 mg/dL (7.0-18.7); Calc. Creatinine Clearance 208 mL/min (70-130); Calcium 8.9 mg/dL (7.8-10.44); Carbon Dioxide 17 mmol/L (22-29); Chloride 104 mmol/L (98-107); Glucose 177 mg/dL (70-105); Potassium 4.2 mmol/L (3.5-5.1); Sodium 134 mmol/L (136-145)
[2025-07-02] MEDS: SODIUM CHLORIDE IV SCH (02:10)
[2025-07-02] MEDS: STERILE WATER IV SCH ×2 (02:10→10:12)
[2025-07-02] MEDS: DEXTROSE 70% IV SCH ×2 (02:10→10:12)
[2025-07-02] MEDS: WATER IV SCH ×2 (02:10→10:12)
[2025-07-02 03:48] LABS: #Basophils 0.03 10x3/uL (0.0-0.2); #Eosinophils 0.14 10x3/uL (0.0-0.5); #Monocytes 0.64 10x3/uL (0.0-1.1); #Neutrophils 3.08 10x3/uL (1.5-8.4); %Basophils 0.5 % (0.0-2.0); %Eosinophils 2.2 % (0.0-6.0); %Lymphocytes 39.2 % (18.0-47.0); %Monocytes 10.0 % (0.0-10.0); %Neutrophils 47.8 % (40.0-75.0); Hematocrit 37.8 % (34.9-44.5); Hemoglobin 12.5 g/dL (12.0-15.5); Mean Corpuscular Hemoglobin 31.0 pg (27.0-33.0); Mean Corpuscular Volume 93.8 fL (81.6-98.3); Platelet Count 245 10x3/uL (150-450); Red Blood Cell (RBC) Count 4.03 10x6/uL (3.90-5.03); White Blood Cell (WBC) Count 6.43 10x3/uL (3.5-10.5)
[2025-07-02 04:03] LABS: Anion Gap 18 mmol/L (10-20); BUN (Urea Nitrogen) 7 mg/dL (7.0-18.7); Calc. Creatinine Clearance 194 mL/min (70-130); Calcium 8.7 mg/dL (7.8-10.44); Carbon Dioxide 18 mmol/L (22-29); Chloride 105 mmol/L (98-107); Glucose 123 mg/dL (70-105); Potassium 3.6 mmol/L (3.5-5.1); Sodium 137 mmol/L (136-145)
[2025-07-02 04:06] LABS: ALT (SGPT) 20 U/L (Less than 34); AST (SGOT) 33 U/L (11-34); Albumin 3.4 g/dL (3.1-4.5); Alkaline Phosphatase 34 U/L (40-110); Anion Gap 18 mmol/L (10-20); BUN (Urea Nitrogen) 7 mg/dL (7.0-18.7); Bilirubin, Total 0.2 mg/dL (0.3-1.2); Calc. Creatinine Clearance 208 mL/min (70-130); Calcium 8.6 mg/dL (7.8-10.44); Carbon Dioxide 17 mmol/L (22-29); Chloride 105 mmol/L (98-107); Globulin 3.3 g/dL (2.4-3.5); Glucose 124 mg/dL (70-105); Magnesium 1.4 mg/dL (1.6-2.6); Potassium 3.5 mmol/L (3.5-5.1); Sodium 136 mmol/L (136-145)
[2025-07-02] MEDS: Magnesium 2 GM/50 ML(in water) 2 GM in Premix 1 BAG IVPB SCH (06:10)
[2025-07-02 07:01] LABS: Anion Gap 17 mmol/L (10-20); BUN (Urea Nitrogen) 7 mg/dL (7.0-18.7); Calc. Creatinine Clearance 213 mL/min (70-130); Calcium 8.5 mg/dL (7.8-10.44); Carbon Dioxide 17 mmol/L (22-29); Chloride 107 mmol/L (98-107); Glucose 145 mg/dL (70-105); Potassium 3.6 mmol/L (3.5-5.1); Sodium 137 mmol/L (136-145)
[2025-07-02] MEDS: INSULIN REGULAR IN 0.9 % NACL 100 ML IVPB SCH (08:46)
[2025-07-02 10:19] VITALS: BP 122/87
[2025-07-03 03:54] LABS: #Basophils 0.04 10x3/uL (0.0-0.2); #Eosinophils 0.16 10x3/uL (0.0-0.5); #Monocytes 0.69 10x3/uL (0.0-1.1); #Neutrophils 3.49 10x3/uL (1.5-8.4); %Basophils 0.6 % (0.0-2.0); %Eosinophils 2.5 % (0.0-6.0); %Lymphocytes 31.6 % (18.0-47.0); %Monocytes 10.7 % (0.0-10.0); %Neutrophils 54.1 % (40.0-75.0); Hematocrit 37.5 % (34.9-44.5); Hemoglobin 12.7 g/dL (12.0-15.5); Mean Corpuscular Hemoglobin 31.4 pg (27.0-33.0); Mean Corpuscular Volume 92.6 fL (81.6-98.3); Platelet Count 253 10x3/uL (150-450); Red Blood Cell (RBC) Count 4.05 10x6/uL (3.90-5.03); White Blood Cell (WBC) Count 6.45 10x3/uL (3.5-10.5)
[2025-07-03 04:10] LABS: ALT (SGPT) 33 U/L (Less than 34); AST (SGOT) 62 U/L (11-34); Albumin 3.4 g/dL (3.1-4.5); Alkaline Phosphatase 32 U/L (40-110); Anion Gap 15 mmol/L (10-20); BUN (Urea Nitrogen) Less than 4 mg/dL (7.0-18.7); Bilirubin, Total 0.3 mg/dL (0.3-1.2); Calc. Creatinine Clearance 184 mL/min (70-130); Calcium 8.3 mg/dL (7.8-10.44); Carbon Dioxide 19 mmol/L (22-29); Chloride 106 mmol/L (98-107); Globulin 3.1 g/dL (2.4-3.5); Glucose 215 mg/dL (70-105); Magnesium 1.4 mg/dL (1.6-2.6); Potassium 3.5 mmol/L (3.5-5.1); Sodium 136 mmol/L (136-145)
[2025-07-03] MEDS: Magnesium 2 GM/50 ML(in water) 2 GM in Premix 1 BAG IVPB SCH (05:14)
[2025-07-04 06:10] LABS: #Basophils 0.04 10x3/uL (0.0-0.2); #Eosinophils 0.16 10x3/uL (0.0-0.5); #Monocytes 0.82 10x3/uL (0.0-1.1); #Neutrophils 4.06 10x3/uL (1.5-8.4); %Basophils 0.6 % (0.0-2.0); %Eosinophils 2.3 % (0.0-6.0); %Lymphocytes 28.1 % (18.0-47.0); %Monocytes 11.6 % (0.0-10.0); %Neutrophils 57.1 % (40.0-75.0); Hematocrit 40.3 % (34.9-44.5); Hemoglobin 12.8 g/dL (12.0-15.5); Mean Corpuscular Hemoglobin 30.3 pg (27.0-33.0); Mean Corpuscular Volume 95.5 fL (81.6-98.3); Platelet Count 255 10x3/uL (150-450); Red Blood Cell (RBC) Count 4.22 10x6/uL (3.90-5.03); White Blood Cell (WBC) Count 7.09 10x3/uL (3.5-10.5)
[2025-07-04 06:28] LABS: ALT (SGPT) 57 U/L (Less than 34); AST (SGOT) 140 U/L (11-34); Albumin 3.4 g/dL (3.1-4.5); Alkaline Phosphatase 44 U/L (40-110); Anion Gap 17 mmol/L (10-20); BUN (Urea Nitrogen) Less than 4 mg/dL (7.0-18.7); Bilirubin, Total 0.5 mg/dL (0.3-1.2); Calc. Creatinine Clearance 169 mL/min (70-130); Calcium 8.1 mg/dL (7.8-10.44); Carbon Dioxide 18 mmol/L (22-29); Chloride 105 mmol/L (98-107); Globulin 3.0 g/dL (2.4-3.5); Glucose 192 mg/dL (70-105); Magnesium 1.5 mg/dL (1.6-2.6); Potassium 3.6 mmol/L (3.5-5.1); Sodium 136 mmol/L (136-145); Triglycerides 776 mg/dL (Less than 150)
[2025-07-04] MEDS: Magnesium 2 GM/50 ML(in water) 2 GM in Premix 1 BAG IVPB SCH (09:00)
[2025-07-05 02:12] VITALS: BMI 31.5
[2025-07-05 03:47] LABS: #Basophils 0.04 10x3/uL (0.0-0.2); #Eosinophils 0.13 10x3/uL (0.0-0.5); #Monocytes 0.87 10x3/uL (0.0-1.1); #Neutrophils 4.12 10x3/uL (1.5-8.4); %Basophils 0.6 % (0.0-2.0); %Eosinophils 1.8 % (0.0-6.0); %Lymphocytes 26.8 % (18.0-47.0); %Monocytes 12.3 % (0.0-10.0); %Neutrophils 58.2 % (40.0-75.0); Hematocrit 39.3 % (34.9-44.5); Hemoglobin 12.9 g/dL (12.0-15.5); Mean Corpuscular Hemoglobin 30.9 pg (27.0-33.0); Mean Corpuscular Volume 94.0 fL (81.6-98.3); Platelet Count 257 10x3/uL (150-450); Red Blood Cell (RBC) Count 4.18 10x6/uL (3.90-5.03); White Blood Cell (WBC) Count 7.08 10x3/uL (3.5-10.5)
[2025-07-05 03:59] LABS: ALT (SGPT) 74 U/L (Less than 34); AST (SGOT) 185 U/L (11-34); Albumin 3.5 g/dL (3.1-4.5); Alkaline Phosphatase 72 U/L (40-110); Anion Gap 14 mmol/L (10-20); BUN (Urea Nitrogen) Less than 4 mg/dL (7.0-18.7); Bilirubin, Total 0.5 mg/dL (0.3-1.2); Calc. Creatinine Clearance 181 mL/min (70-130); Calcium 8.2 mg/dL (7.8-10.44); Carbon Dioxide 19 mmol/L (22-29); Chloride 106 mmol/L (98-107); Globulin 3.2 g/dL (2.4-3.5); Glucose 192 mg/dL (70-105); Magnesium 1.7 mg/dL (1.6-2.6); Potassium 3.4 mmol/L (3.5-5.1); Sodium 136 mmol/L (136-145); Triglycerides 666 mg/dL (Less than 150)
[2025-07-05] MEDS: Magnesium 2 GM/50 ML(in water) 2 GM in Premix 1 BAG IVPB SCH (04:33)
[2025-07-05 15:00] VITALS: BMI 31.6
[2025-07-06 05:24] LABS: #Basophils 0.03 10x3/uL (0.0-0.2); #Eosinophils 0.14 10x3/uL (0.0-0.5); #Monocytes 1.13 10x3/uL (0.0-1.1); #Neutrophils 4.71 10x3/uL (1.5-8.4); %Basophils 0.4 % (0.0-2.0); %Eosinophils 1.7 % (0.0-6.0); %Lymphocytes 25.2 % (18.0-47.0); %Monocytes 14.0 % (0.0-10.0); %Neutrophils 58.3 % (40.0-75.0); Hematocrit 39.5 % (34.9-44.5); Hemoglobin 12.7 g/dL (12.0-15.5); Mean Corpuscular Hemoglobin 30.7 pg (27.0-33.0); Mean Corpuscular Volume 95.4 fL (81.6-98.3); Platelet Count 250 10x3/uL (150-450); Red Blood Cell (RBC) Count 4.14 10x6/uL (3.90-5.03); White Blood Cell (WBC) Count 8.08 10x3/uL (3.5-10.5)
[2025-07-06 05:49] LABS: ALT (SGPT) 51 U/L (Less than 34); AST (SGOT) 51 U/L (11-34); Albumin 3.2 g/dL (3.1-4.5); Alkaline Phosphatase 64 U/L (40-110); Anion Gap 16 mmol/L (10-20); BUN (Urea Nitrogen) Less than 4 mg/dL (7.0-18.7); Bilirubin, Total 0.4 mg/dL (0.3-1.2); Calc. Creatinine Clearance 159 mL/min (70-130); Calcium 8.1 mg/dL (7.8-10.44); Carbon Dioxide 18 mmol/L (22-29); Chloride 107 mmol/L (98-107); Globulin 3.1 g/dL (2.4-3.5); Glucose 209 mg/dL (70-105); Magnesium 1.6 mg/dL (1.6-2.6); Potassium 3.5 mmol/L (3.5-5.1); Sodium 137 mmol/L (136-145); Triglycerides 446 mg/dL (Less than 150)
[2025-07-06] MEDS: Lantus 1000 UNITS/10 ML VIAL SC SCH (08:27)
[2025-07-06 09:36] VITALS: TEMP 98.2
[2025-07-06] MEDS: Magnesium 2 GM/50 ML(in water) 2 GM in Premix 1 BAG IVPB SCH (10:47)
== END 2025-07-06 12:15 | disposition home or self-care (01) | DRG 639 ==
LOC: CSHERS 09:59 → CSHERHOLD 12:35 → CSHICU 17:04
PROVIDERS: ADMIT Family Medicine; ATTEND Internal Medicine
PROC: 4A033R1 Measurement of Arterial Saturation, Peripheral, Percutaneous Approach (ICD-10-PCS; principal; 2025-06-29)
PROC: 3E03329 Introduction of Other Anti-infective into Peripheral Vein, Percutaneous Approach (ICD-10-PCS; 2025-06-29)
PROC: 05HC33Z Insertion of Infusion Device into Left Basilic Vein, Percutaneous Approach (ICD-10-PCS; 2025-07-03)
DX: E11.10 Type 2 diabetes mellitus with ketoacidosis without coma (principal); E78.1 Pure hyperglyceridemia; I10 Essential (primary) hypertension; E78.5 Hyperlipidemia, unspecified; E66.811 Obesity, class 1; E11.649 Type 2 diabetes mellitus with hypoglycemia without coma; Z96.41 Presence of insulin pump (external) (internal); R10.31 Right lower quadrant pain; Z68.31 Body mass index [BMI] 31.0-31.9, adult; Z79.4 Long term (current) use of insulin; Z79.899 Other long term (current) drug therapy; Z90.49 Acquired absence of other specified parts of digestive tract; Z90.81 Acquired absence of spleen; Z98.51 Tubal ligation status; Z98.891 History of uterine scar from previous surgery; Z87.440 Personal history of urinary (tract) infections
CPT/HCPCS: 36415; 36416; 36600; 71045; 74176; 76856; 80048; 80053; 80061; 81001; 82010; 82805; 83605; 83690; 83735; 84100; 84478; 84703; 85025; 93005; 96361; 96365; 96366; 96375; A4217; J0696; J1650; J1815; J1885; J2272; J3475; J3480; J7042; Q0162